=== PATIENT | male | born 1960 | race Caucasian/White ===

== ENCOUNTER 2017-05-10 13:38 | Inpatient (IN) | payer OTHER ==
[2017-05-10 14:42] LABS: ADD MAN DIFF? NO
[2017-05-10 14:44] LABS: BASO % 0 % (0-3); EOS # 0.1 x10^3/uL (0.0-0.7); EOS % 1 % (0-3); HEMOGLOBIN 13.2 g/dL (13.0-17.5); LYMPH % 9 % (24-48); MEAN CORPUSCULAR HEMOGLOBIN 32 pg (25-35); MEAN CORPUSCULAR HGB CONC 33 g/dL (31-37); MEAN CORPUSCULAR VOLUME 96 fL (79-100); MONO % 8 % (0-9); NEUT # 10.1 x10^3uL (1.8-7.7); NEUT % 82 % (31-73); PLATELET COUNT 198 x10^3/uL (140-400); RED BLOOD COUNT 4.17 x10^6/uL (4.30-5.70); RED CELL DISTRIBUTION WIDTH 13.4 % (11.5-14.5); WHITE BLOOD COUNT 12.2 x10^3/uL (4.0-11.0)
[2017-05-10 14:52] LABS: ANION GAP 10 (6-14); BLOOD UREA NITROGEN 15 mg/dL (8-26); CALCIUM 8.9 mg/dL (8.5-10.1); CARBON DIOXIDE 28 mmol/L (21-32); CHLORIDE 101 mmol/L (98-107); CREATININE 1.2 mg/dL (0.7-1.3); GFR 62.9; GLUCOSE 118 mg/dL (70-99); POTASSIUM 3.9 mmol/L (3.5-5.1); SODIUM 139 mmol/L (136-145)
[2017-05-10 14:53] LABS: INR 1.2 (0.8-1.1); PARTIAL THROMBOPLASTIN TIME 36 SEC (24-38); PROTHROMBIN TIME PATIENT 14.9 SEC (11.7-14.0)
[2017-05-10 14:58] LABS: ALBUMIN 3.1 g/dL (3.4-5.0); ALK PHOS 79 U/L (46-116); ALT (SGPT) 20 U/L (16-63); AST (SGOT) 20 U/L (15-37); DIRECT BILIRUBIN < 0.1 mg/dL (0.0-0.2); TOTAL BILIRUBIN 0.3 mg/dL (0.2-1.0); TOTAL PROTEIN 7.2 g/dL (6.4-8.2)
[2017-05-10] MEDS ORDERED: VANCOMYCIN PER PHARMACY MC (15:00)
[2017-05-10] MEDS ORDERED: PIP/TAZO PER PHARMACY MC (15:00)
[2017-05-10 15:06] LABS: CKMB INDEX 0.5 % (0-4); CKMB MASS 1.1 ng/mL (0.0-3.6); CREATINE KINASE 238 U/L (39-308)
[2017-05-10] MEDS: IOHEXOL 300 MG/ML 100ML VIAL. IV (15:10)
[2017-05-10] MEDS: IV NORMAL SALINE 1000ML BAG 1,000 ML IV ×3 (15:30→21:03)
[2017-05-10] MEDS ORDERED: ONDANSETRON PF 4 MG/2 ML VIAL. IV (15:30)
[2017-05-10] MEDS: VANCOMYCIN 2 GM in IV 1/2 NORMAL SALINE 500 ML IV (15:39)
[2017-05-10 15:46] LABS: AMPHETAMINE/METHAMPHETAMINE NEG (NEG); BARBITURATES NEG (NEG); BENZODIAZEPINES NEG (NEG); CANNABINOIDS NEG (NEG); COCAINE NEG (NEG); ETHANOL, URINE NEG (NEG); METHADONE NEG (NEG); OPIATES NEG (NEG); PHENCYCLIDINE NEG (NEG)
[2017-05-10 15:49] LABS: BACTERIA,URINE 0 /HPF (0-FEW); BILIRUBIN,URINE NEGATIVE (NEG); CLARITY,URINE CLEAR; COLOR,URINE YELLOW; GLUCOSE,URINE NEGATIVE (NEG); NITRITE,URINE NEGATIVE (NEG); PROTEIN,URINE NEGATIVE (NEG-TRACE); RBC,URINE 0 /HPF (0-2); WBC,URINE OCC /HPF (0-4)
[2017-05-10 15:52] LABS: LACTIC ACID 1.8 mmol/L (0.4-2.0)
[2017-05-10 18:00] LABS: LACTIC ACID 1.8 mmol/L (0.4-2.0)
[2017-05-10] MEDS: PIPERACILLIN/TAZOBACTAM 3.375 GM in IV NORMAL SALINE 100ML 100 ML IV (19:47)
[2017-05-10] MEDS: ENOXAPARIN 40 MG/0.4 ML SYRINGE. SQ (20:27)
[2017-05-10] MEDS: LACTOBACILLUS RHAMNOSUS GG 1 CAPSULE. PO (20:28)
[2017-05-10] MEDS: ACETAMINOPHEN 325 MG TABLET. PO (20:28)
[2017-05-10] MEDS: MORPHINE SULFATE 4 MG/ML DISP.SYRIN. IV (21:11)
[2017-05-10] MEDS: PIPERACILLIN/TAZOBACTAM 3.375 GM in IV NORMAL SALINE 50ML 50 ML IV (23:59)
[2017-05-11] MEDS: MORPHINE SULFATE 4 MG/ML DISP.SYRIN. IV (05:06)
[2017-05-11 05:42] LABS: BASO % 0 % (0-3); EOS % 0 % (0-3); HEMATOCRIT 37.8 % (39.0-53.0); HEMOGLOBIN 12.6 g/dL (13.0-17.5); LYMPH # 0.8 x10^3/uL (1.0-4.8); LYMPH % 8 % (24-48); MEAN CORPUSCULAR HEMOGLOBIN 32 pg (25-35); MEAN CORPUSCULAR HGB CONC 33 g/dL (31-37); MEAN CORPUSCULAR VOLUME 95 fL (79-100); MONO # 0.7 x10^3/uL (0.0-1.1); MONO % 7 % (0-9); NEUT # 9.5 x10^3uL (1.8-7.7); NEUT % 85 % (31-73); PLATELET COUNT 179 x10^3/uL (140-400); RED BLOOD COUNT 3.99 x10^6/uL (4.30-5.70); RED CELL DISTRIBUTION WIDTH 13.5 % (11.5-14.5); WHITE BLOOD COUNT 11.1 x10^3/uL (4.0-11.0)
[2017-05-11] MEDS: PIPERACILLIN/TAZOBACTAM 3.375 GM in IV NORMAL SALINE 50ML 50 ML IV ×3 (05:59→17:55)
[2017-05-11 06:00] LABS: ADD MAN DIFF? YES
[2017-05-11 06:16] LABS: ANION GAP 9 (6-14); BLOOD UREA NITROGEN 12 mg/dL (8-26); CALCIUM 8.6 mg/dL (8.5-10.1); CARBON DIOXIDE 25 mmol/L (21-32); CHLORIDE 103 mmol/L (98-107); CREATININE 1.4 mg/dL (0.7-1.3); GFR 52.6; GLUCOSE 163 mg/dL (70-99); POTASSIUM 3.7 mmol/L (3.5-5.1); SODIUM 137 mmol/L (136-145)
[2017-05-11 08:09] LABS: % BANDS 4 % (0-9); % BASOS 1 % (0-3); % LYMPHS 6 % (24-48); % MONOS 3 % (0-10); % SEGS 86 % (35-66); PLT ESTIMATE ADEQUATE (ADEQUATE)
[2017-05-11] MEDS: ACETAMINOPHEN 325 MG TABLET. PO ×2 (09:13→16:40)
[2017-05-11] MEDS: LACTOBACILLUS RHAMNOSUS GG 1 CAPSULE. PO ×2 (09:13→20:42)
[2017-05-11 14:29] LABS: MRSA BY PCR Negative (Negative)
[2017-05-11] MEDS: ENOXAPARIN 40 MG/0.4 ML SYRINGE. SQ (18:19)
[2017-05-11] MEDS: HYDROcodone/APAP 5/325MG 1 TAB TABLET PO (18:23)
[2017-05-12] MEDS: PIPERACILLIN/TAZOBACTAM 3.375 GM in IV NORMAL SALINE 50ML 50 ML IV ×4 (00:19→17:41)
[2017-05-12] MEDS: HYDROcodone/APAP 5/325MG 1 TAB TABLET PO ×4 (00:25→19:54)
[2017-05-12 04:09] LABS: ADD MAN DIFF? NO
[2017-05-12 04:20] LABS: BASO % 0 % (0-3); EOS # 0.2 x10^3/uL (0.0-0.7); EOS % 2 % (0-3); HEMATOCRIT 39.8 % (39.0-53.0); HEMOGLOBIN 13.5 g/dL (13.0-17.5); LYMPH # 1.2 x10^3/uL (1.0-4.8); LYMPH % 13 % (24-48); MEAN CORPUSCULAR HEMOGLOBIN 32 pg (25-35); MEAN CORPUSCULAR HGB CONC 34 g/dL (31-37); MEAN CORPUSCULAR VOLUME 95 fL (79-100); MONO # 0.9 x10^3/uL (0.0-1.1); MONO % 9 % (0-9); NEUT # 7.1 x10^3uL (1.8-7.7); NEUT % 75 % (31-73); PLATELET COUNT 206 x10^3/uL (140-400); RED BLOOD COUNT 4.21 x10^6/uL (4.30-5.70); RED CELL DISTRIBUTION WIDTH 13.3 % (11.5-14.5); WHITE BLOOD COUNT 9.4 x10^3/uL (4.0-11.0)
[2017-05-12 05:00] LABS: ANION GAP 7 (6-14); BLOOD UREA NITROGEN 12 mg/dL (8-26); CALCIUM 9.1 mg/dL (8.5-10.1); CARBON DIOXIDE 28 mmol/L (21-32); CHLORIDE 102 mmol/L (98-107); CREATININE 1.2 mg/dL (0.7-1.3); GFR 62.9; GLUCOSE 103 mg/dL (70-99); POTASSIUM 4.2 mmol/L (3.5-5.1); SODIUM 137 mmol/L (136-145)
[2017-05-12] MEDS: ACETAMINOPHEN 325 MG TABLET. PO ×2 (08:29→22:04)
[2017-05-12] MEDS: LACTOBACILLUS RHAMNOSUS GG 1 CAPSULE. PO ×2 (08:29→22:04)
[2017-05-12] MEDS ORDERED: ACETAMINOPHEN 325 MG TABLET. PO (16:30)
[2017-05-12] MEDS: ENOXAPARIN 40 MG/0.4 ML SYRINGE. SQ (17:42)
[2017-05-12] MEDS: NORTRIPTYLINE 25 MG CAPSULE PO (22:04)
[2017-05-12] MEDS: METOPROLOL TART IMMED RELEASE 25 MG TABLET. PO (22:05)
[2017-05-12] MEDS: SIMVASTATIN 40 MG TABLET. PO (22:05)
[2017-05-12] MEDS: PERPHENAZINE 2 MG TABLET PO (22:06)
[2017-05-13] MEDS: PIPERACILLIN/TAZOBACTAM 3.375 GM in IV NORMAL SALINE 50ML 50 ML IV ×4 (00:42→18:05)
[2017-05-13] MEDS: ASPIRIN CHEWABLE 81 MG TABLET. PO (08:10)
[2017-05-13] MEDS: LACTOBACILLUS RHAMNOSUS GG 1 CAPSULE. PO ×2 (08:10→21:07)
[2017-05-13] MEDS: HYDROcodone/APAP 5/325MG 1 TAB TABLET PO ×2 (08:11→18:03)
[2017-05-13] MEDS: METOPROLOL TART IMMED RELEASE 25 MG TABLET. PO ×2 (08:11→21:08)
[2017-05-13] MEDS: LISINOPRIL 5 MG TABLET. PO (08:11)
[2017-05-13] MEDS: ACETAMINOPHEN 325 MG TABLET. PO ×2 (11:30→21:06)
[2017-05-13] MEDS: ENOXAPARIN 40 MG/0.4 ML SYRINGE. SQ (18:05)
[2017-05-13] MEDS: SIMVASTATIN 40 MG TABLET. PO (21:07)
[2017-05-13] MEDS: NORTRIPTYLINE 25 MG CAPSULE PO (21:07)
[2017-05-13] MEDS: PERPHENAZINE 2 MG TABLET PO (21:07)
[2017-05-14] MEDS: PIPERACILLIN/TAZOBACTAM 3.375 GM in IV NORMAL SALINE 50ML 50 ML IV ×5 (00:10→23:42)
[2017-05-14] MEDS: HYDROcodone/APAP 5/325MG 1 TAB TABLET PO ×4 (00:15→21:00)
[2017-05-14] MEDS: IBUPROFEN 400 MG TABLET. PO ×3 (00:15→17:20)
[2017-05-14 05:31] LABS: ADD MAN DIFF? NO
[2017-05-14 05:33] LABS: BASO % 0 % (0-3); EOS # 0.5 x10^3/uL (0.0-0.7); EOS % 6 % (0-3); HEMATOCRIT 40.4 % (39.0-53.0); HEMOGLOBIN 13.6 g/dL (13.0-17.5); LYMPH # 2.4 x10^3/uL (1.0-4.8); LYMPH % 28 % (24-48); MEAN CORPUSCULAR HEMOGLOBIN 32 pg (25-35); MEAN CORPUSCULAR HGB CONC 34 g/dL (31-37); MEAN CORPUSCULAR VOLUME 95 fL (79-100); MONO # 1.4 x10^3/uL (0.0-1.1); MONO % 17 % (0-9); NEUT # 4.2 x10^3uL (1.8-7.7); NEUT % 50 % (31-73); PLATELET COUNT 240 x10^3/uL (140-400); RED BLOOD COUNT 4.26 x10^6/uL (4.30-5.70); RED CELL DISTRIBUTION WIDTH 13.2 % (11.5-14.5); WHITE BLOOD COUNT 8.5 x10^3/uL (4.0-11.0)
[2017-05-14 06:20] LABS: ANION GAP 6 (6-14); BLOOD UREA NITROGEN 15 mg/dL (8-26); CALCIUM 9.2 mg/dL (8.5-10.1); CARBON DIOXIDE 31 mmol/L (21-32); CHLORIDE 101 mmol/L (98-107); CREATININE 1.4 mg/dL (0.7-1.3); GFR 52.6; GLUCOSE 100 mg/dL (70-99); POTASSIUM 4.6 mmol/L (3.5-5.1); SODIUM 138 mmol/L (136-145)
[2017-05-14] MEDS: ASPIRIN CHEWABLE 81 MG TABLET. PO (08:07)
[2017-05-14] MEDS: LACTOBACILLUS RHAMNOSUS GG 1 CAPSULE. PO ×2 (08:07→21:21)
[2017-05-14] MEDS ORDERED: LIDOCAINE 1% Multi-Dose 20 ML VIAL. INJ (10:15)
[2017-05-14] MEDS: LIDOCAINE 1% Multi-Dose 50 ML VIAL. INJ (10:15)
[2017-05-14] MEDS: METOPROLOL TART IMMED RELEASE 25 MG TABLET. PO ×2 (12:07→21:20)
[2017-05-14] MEDS: LISINOPRIL 5 MG TABLET. PO (12:08)
[2017-05-14] MEDS: ENOXAPARIN 40 MG/0.4 ML SYRINGE. SQ (17:20)
[2017-05-14] MEDS: NORTRIPTYLINE 25 MG CAPSULE PO (21:20)
[2017-05-14] MEDS: SIMVASTATIN 40 MG TABLET. PO (21:20)
[2017-05-14] MEDS: PERPHENAZINE 2 MG TABLET PO (21:25)
[2017-05-15] MEDS: IBUPROFEN 400 MG TABLET. PO ×4 (01:07→23:41)
[2017-05-15] MEDS: HYDROcodone/APAP 5/325MG 1 TAB TABLET PO ×5 (03:53→23:41)
[2017-05-15] MEDS: PIPERACILLIN/TAZOBACTAM 3.375 GM in IV NORMAL SALINE 50ML 50 ML IV ×4 (03:54→23:41)
[2017-05-15 04:20] LABS: ADD MAN DIFF? NO
[2017-05-15 04:25] LABS: BASO % 1 % (0-3); EOS # 0.5 x10^3/uL (0.0-0.7); EOS % 7 % (0-3); HEMOGLOBIN 13.6 g/dL (13.0-17.5); LYMPH # 2.2 x10^3/uL (1.0-4.8); LYMPH % 31 % (24-48); MEAN CORPUSCULAR HEMOGLOBIN 32 pg (25-35); MEAN CORPUSCULAR HGB CONC 34 g/dL (31-37); MEAN CORPUSCULAR VOLUME 94 fL (79-100); MONO # 0.9 x10^3/uL (0.0-1.1); MONO % 12 % (0-9); NEUT # 3.7 x10^3uL (1.8-7.7); NEUT % 50 % (31-73); PLATELET COUNT 265 x10^3/uL (140-400); RED BLOOD COUNT 4.24 x10^6/uL (4.30-5.70); RED CELL DISTRIBUTION WIDTH 13.3 % (11.5-14.5); WHITE BLOOD COUNT 7.3 x10^3/uL (4.0-11.0)
[2017-05-15 04:53] LABS: ANION GAP 10 (6-14); BLOOD UREA NITROGEN 12 mg/dL (8-26); CALCIUM 9.1 mg/dL (8.5-10.1); CARBON DIOXIDE 26 mmol/L (21-32); CHLORIDE 103 mmol/L (98-107); CREATININE 1.1 mg/dL (0.7-1.3); GFR 69.5; GLUCOSE 129 mg/dL (70-99); POTASSIUM 3.6 mmol/L (3.5-5.1); SODIUM 139 mmol/L (136-145)
[2017-05-15] MEDS: LACTOBACILLUS RHAMNOSUS GG 1 CAPSULE. PO ×2 (08:21→20:27)
[2017-05-15] MEDS: ASPIRIN CHEWABLE 81 MG TABLET. PO (08:22)
[2017-05-15] MEDS: LISINOPRIL 5 MG TABLET. PO (08:34)
[2017-05-15] MEDS: METOPROLOL TART IMMED RELEASE 25 MG TABLET. PO ×2 (08:34→20:27)
[2017-05-15] MEDS: ENOXAPARIN 40 MG/0.4 ML SYRINGE. SQ (17:15)
[2017-05-15] MEDS: SIMVASTATIN 40 MG TABLET. PO (20:27)
[2017-05-15] MEDS: PERPHENAZINE 2 MG TABLET PO (20:28)
[2017-05-15] MEDS: NORTRIPTYLINE 25 MG CAPSULE PO (20:28)
[2017-05-16] MEDS ORDERED: PNEUMOCOCCAL VAX SCREEN BY RX. MC (03:30)
[2017-05-16] MEDS: PIPERACILLIN/TAZOBACTAM 3.375 GM in IV NORMAL SALINE 50ML 50 ML IV ×3 (05:45→17:52)
[2017-05-16 06:57] LABS: BASO % 1 % (0-3); EOS # 0.6 x10^3/uL (0.0-0.7); EOS % 6 % (0-3); HEMATOCRIT 42.4 % (39.0-53.0); HEMOGLOBIN 14.1 g/dL (13.0-17.5); LYMPH # 2.5 x10^3/uL (1.0-4.8); LYMPH % 26 % (24-48); MEAN CORPUSCULAR HEMOGLOBIN 31 pg (25-35); MEAN CORPUSCULAR HGB CONC 33 g/dL (31-37); MEAN CORPUSCULAR VOLUME 95 fL (79-100); MONO # 1.1 x10^3/uL (0.0-1.1); MONO % 11 % (0-9); NEUT # 5.4 x10^3uL (1.8-7.7); NEUT % 57 % (31-73); PLATELET COUNT 313 x10^3/uL (140-400); RED BLOOD COUNT 4.48 x10^6/uL (4.30-5.70); RED CELL DISTRIBUTION WIDTH 13.4 % (11.5-14.5); WHITE BLOOD COUNT 9.6 x10^3/uL (4.0-11.0)
[2017-05-16 07:12] LABS: ANION GAP 3 (6-14); BLOOD UREA NITROGEN 10 mg/dL (8-26); CARBON DIOXIDE 30 mmol/L (21-32); CHLORIDE 101 mmol/L (98-107); CREATININE 1.2 mg/dL (0.7-1.3); GFR 62.9; GLUCOSE 127 mg/dL (70-99); SODIUM 134 mmol/L (136-145)
[2017-05-16 07:38] LABS: ADD MAN DIFF? YES
[2017-05-16] MEDS: ASPIRIN CHEWABLE 81 MG TABLET. PO (08:46)
[2017-05-16] MEDS: METOPROLOL TART IMMED RELEASE 25 MG TABLET. PO ×2 (08:46→20:58)
[2017-05-16] MEDS: LACTOBACILLUS RHAMNOSUS GG 1 CAPSULE. PO ×2 (08:46→20:58)
[2017-05-16] MEDS: HYDROcodone/APAP 5/325MG 1 TAB TABLET PO ×3 (08:47→20:59)
[2017-05-16] MEDS: LISINOPRIL 5 MG TABLET. PO (08:49)
[2017-05-16] MEDS: PNEUMOC CONJ VACC 23-VALENT 0.5 ML VIAL. VAX IM (08:52)
[2017-05-16] MEDS: IBUPROFEN 400 MG TABLET. PO ×2 (11:36→17:47)
[2017-05-16 13:09] LABS: % BANDS 1 % (0-9); % BASOS 1 % (0-3); % EOS 7 % (0-5); % LYMPHS 33 % (24-48); % MONOS 2 % (0-10); % MYELOS 1 % (0-0); % SEGS 55 % (35-66); NUCLEATED RBC 1; PLT ESTIMATE ADEQUATE (ADEQUATE)
[2017-05-16] MEDS: ENOXAPARIN 40 MG/0.4 ML SYRINGE. SQ (17:48)
[2017-05-16] MEDS: PERPHENAZINE 2 MG TABLET PO (20:57)
[2017-05-16] MEDS: NORTRIPTYLINE 25 MG CAPSULE PO (20:58)
[2017-05-16] MEDS: SIMVASTATIN 40 MG TABLET. PO (20:59)
[2017-05-17] MEDS: PIPERACILLIN/TAZOBACTAM 3.375 GM in IV NORMAL SALINE 50ML 50 ML IV ×3 (00:07→11:48)
[2017-05-17] MEDS: IBUPROFEN 400 MG TABLET. PO ×4 (00:13→23:20)
[2017-05-17] MEDS: HYDROcodone/APAP 5/325MG 1 TAB TABLET PO ×4 (05:00→20:07)
[2017-05-17] MEDS: ASPIRIN CHEWABLE 81 MG TABLET. PO (08:24)
[2017-05-17] MEDS: LACTOBACILLUS RHAMNOSUS GG 1 CAPSULE. PO ×2 (08:24→20:08)
[2017-05-17] MEDS: LISINOPRIL 5 MG TABLET. PO (08:26)
[2017-05-17] MEDS: METOPROLOL TART IMMED RELEASE 25 MG TABLET. PO ×2 (08:27→20:08)
[2017-05-17] MEDS: fentaNYL PF VIAL 100 MCG/2 ML VIAL IV (12:54)
[2017-05-17] MEDS: ENOXAPARIN 40 MG/0.4 ML SYRINGE. SQ (18:39)
[2017-05-17] MEDS: AMOXICILLIN/K CLAV 875/125MG TABLET. PO (20:07)
[2017-05-17] MEDS: PERPHENAZINE 2 MG TABLET PO (20:07)
[2017-05-17] MEDS: NORTRIPTYLINE 25 MG CAPSULE PO (20:07)
[2017-05-17] MEDS: DOXYCYCLINE HYCLATE 100 MG TABLET PO (20:08)
[2017-05-17] MEDS: SIMVASTATIN 40 MG TABLET. PO (20:08)
[2017-05-18] MEDS: HYDROcodone/APAP 5/325MG 1 TAB TABLET PO ×2 (00:50→08:02)
[2017-05-18] MEDS: LACTOBACILLUS RHAMNOSUS GG 1 CAPSULE. PO (08:00)
[2017-05-18] MEDS: ASPIRIN CHEWABLE 81 MG TABLET. PO (08:00)
[2017-05-18] MEDS: AMOXICILLIN/K CLAV 875/125MG TABLET. PO (08:00)
[2017-05-18] MEDS: METOPROLOL TART IMMED RELEASE 25 MG TABLET. PO (08:01)
[2017-05-18] MEDS: DOXYCYCLINE HYCLATE 100 MG TABLET PO (08:02)
[2017-05-18] MEDS: LISINOPRIL 5 MG TABLET. PO (08:02)
[2017-05-18] MEDS: IBUPROFEN 400 MG TABLET. PO (08:03)
[2017-05-18] MEDS: fentaNYL PF VIAL 100 MCG/2 ML VIAL IV (10:41)
== END 2017-05-18 15:15 | disposition home or self-care (01) | DRG 871 ==
LOC: 5 NORTH 05-11 01:50 → ER 13:38 → 1 WEST ICU 15:19
PROVIDERS: Family Medicine
PROC: 0V9S3ZZ Drainage of Penis, Percutaneous Approach (ICD-10-PCS; principal; 2017-05-10)
DX: A41.9 Sepsis, unspecified organism (principal); N17.0 Acute kidney failure with tubular necrosis; N48.22 Cellulitis of corpus cavernosum and penis; N48.89 Other specified disorders of penis; E78.5 Hyperlipidemia, unspecified; F17.210 Nicotine dependence, cigarettes, uncomplicated; F25.9 Schizoaffective disorder, unspecified; N48.21 Abscess of corpus cavernosum and penis; I10 Essential (primary) hypertension; I25.10 Atherosclerotic heart disease of native coronary artery without angina pectoris; I25.2 Old myocardial infarction; Z81.8 Family history of other mental and behavioral disorders
CPT/HCPCS: 36415; 51702; 74170; 80048; 80076; 80307; 81001; 82553; 83605; 85007; 85025; 85610; 85730; 87040; 87071; 87075; 87205; 87641; 90732; 96361; 96365; 99285-25; J1650; J2020; J2270; J2543; J3010; J3370; J7030; Q0175; Q9967